=== PATIENT | female | born 1935 | race Asian ===

== ENCOUNTER 2018-07-05 18:22 | Inpatient (IN) | payer MEDICARE, OTHER ==
[2018-07-05 19:21] LABS: ADD MAN DIFF? NO
[2018-07-05] MEDS: ONDANSETRON 4 MG INJ IV ×2 (19:27→21:22)
[2018-07-05] MEDS: morphine 2 MG INJ IV ×2 (19:27→21:51)
[2018-07-05 19:28] LABS: ABNORMAL IP MESSAGE 1; BASOPHILS % 0.6 % (0.0-2.0); EOSINOPHILS % 0.4 % (0.0-7.0); HEMATOCRIT 31.9 % (37.0-47.0); HEMOGLOBIN 10.5 g/dl (12.0-16.0); LYMPHOCYTES # 0.4 10^3/ul (0.8-2.9); LYMPHOCYTES % 8.6 % (15.0-51.0); MEAN CORPUSCULAR HEMOGLOBIN 31.9 pg (29.0-33.0); MEAN CORPUSCULAR HGB CONC 32.9 g/dl (32.0-37.0); MEAN PLATELET VOLUME 10.6 fl (7.4-10.4); MONOCYTE # 0.4 10^3/ul (0.3-0.9); PLATELET COUNT 103 10^3/UL (140-415); RED BLOOD COUNT 3.29 10^6/ul (4.20-5.40); RED CELL DISTRIBUTION WIDTH 13.2 % (11.5-14.5)
[2018-07-05 19:28] LABS: WHITE BLOOD COUNT 4.9 10^3/ul (4.8-10.8)
[2018-07-05] MEDS: SOD CHLORIDE 0.9% 1,000 ML IV (19:28)
[2018-07-05 19:30] LABS: POSITIVE DIFF @See below
[2018-07-05 19:43] LABS: INR 0.99; PROTIME 13.2 Sec (11.9-14.9)
[2018-07-05 19:44] LABS: PARTIAL THROMBOPLASTIN TIME 31.5 Sec (23.0-35.0)
[2018-07-05 19:46] LABS: ALANINE AMINOTRANSFERASE 36 IU/L (13-69); ALBUMIN 4.2 g/dl (3.3-4.9); ALBUMIN/GLOBULIN RATIO 1.27; ALKALINE PHOSPHATASE 68 IU/L (42-121); ANION GAP 6 (5-13); ASPARTATE AMINO TRANSFERASE 43 IU/L (15-46); BILIRUBIN,INDIRECT 0.5 mg/dl (0-1.1); BILIRUBIN,TOTAL 0.5 mg/dl (0.2-1.3); BLOOD UREA NITROGEN 21 mg/dl (7-20); CALCIUM 9.4 mg/dl (8.4-10.2); CARBON DIOXIDE 27 mmol/L (21-31); CHLORIDE 104 mmol/L (97-110); CREATININE 0.83 mg/dl (0.44-1.00); GLUCOSE 218 mg/dl (70-220); POTASSIUM 4.2 mmol/L (3.5-5.1); SODIUM 137 mmol/L (135-144); TOTAL PROTEIN 7.5 g/dl (6.1-8.1)
[2018-07-05 19:57] LABS: TROPONIN-I 0.025 ng/ml (0.000-0.120)
[2018-07-05] MEDS ORDERED: HYDROCODONE/APAP (5/325) TAB PO (20:00)
[2018-07-05] MEDS ORDERED: NACL 0.9% 3 ML SYG IV (20:00)
[2018-07-05] MEDS ORDERED: ONDANSETRON 4 MG TAB PO (20:00)
[2018-07-05 20:33] LABS: ADD UMIC YES; UR ASCORBIC ACID 40 mg/dL (NEGATIVE); UR BILIRUBIN (Dip) NEGATIVE (NEGATIVE); UR BLOOD (Dip) NEGATIVE (NEGATIVE); UR CLARITY CLEAR (CLEAR); UR COLOR YELLOW (YELLOW); UR GLUCOSE (Dip) 3+ mg/dL (NEGATIVE); UR KETONES (Dip) NEGATIVE (NEGATIVE); UR LEUKOCYTE ESTERASE (Dip) NEGATIVE Leu/ul (NEGATIVE); UR NITRITE (Dip) NEGATIVE (NEGATIVE); UR RBC 1 /HPF (0-5); UR SPECIFIC GRAVITY (Dip) 1.012 (1.003-1.030); UR TOTAL PROTEIN (Dip) 1+ mg/dl (NEGATIVE); UR UROBILINOGEN (Dip) NEGATIVE (NEGATIVE); UR WBC 1 /HPF (0-5)
[2018-07-05] MEDS: HYDROmorphONE 0.5 MG/0.5 ML SYG IV (21:22)
[2018-07-05] MEDS: DOCUSATE SODIUM 100 MG CAP PO (22:39)
[2018-07-05] MEDS: ACETAMINOPHEN 325 MG TAB PO (22:39)
[2018-07-05] MEDS: hydrALAzine 20 MG INJ IV (22:39)
[2018-07-06 01:24] LABS: CREATINE KINASE 72 IU/L (23-200)
[2018-07-06 01:34] LABS: CK INDEX 1.2; CK-MB 0.89 ng/ml (0.0-2.4)
[2018-07-06] MEDS: morphine 2 MG INJ IV (05:16)
[2018-07-06 05:21] LABS: ADD MAN DIFF? NO
[2018-07-06 05:29] LABS: ABNORMAL IP MESSAGE 1; BASOPHILS % 0.7 % (0.0-2.0); HEMATOCRIT 29.8 % (37.0-47.0); HEMOGLOBIN 10.1 g/dl (12.0-16.0); LYMPHOCYTES # 0.6 10^3/ul (0.8-2.9); LYMPHOCYTES % 9.6 % (15.0-51.0); MEAN CORPUSCULAR HEMOGLOBIN 32.3 pg (29.0-33.0); MEAN CORPUSCULAR HGB CONC 33.9 g/dl (32.0-37.0); MEAN CORPUSCULAR VOLUME 95.2 fl (82.0-101.0); MEAN PLATELET VOLUME 10.8 fl (7.4-10.4); MONOCYTE # 0.5 10^3/ul (0.3-0.9); MONOCYTES % 7.9 % (0.0-11.0); NEUTROPHIL # 4.9 10^3/ul (1.6-7.5); NEUTROPHILS % 81.6 % (39.0-77.0); PLATELET COUNT 87 10^3/UL (140-415); RED BLOOD COUNT 3.13 10^6/ul (4.20-5.40); RED CELL DISTRIBUTION WIDTH 13.3 % (11.5-14.5)
[2018-07-06 05:38] LABS: POSITIVE DIFF @See below
[2018-07-06 05:58] LABS: ALANINE AMINOTRANSFERASE 29 IU/L (13-69); ALBUMIN 3.6 g/dl (3.3-4.9); ALBUMIN/GLOBULIN RATIO 1.24; ALKALINE PHOSPHATASE 52 IU/L (42-121); ANION GAP 3 (5-13); ASPARTATE AMINO TRANSFERASE 38 IU/L (15-46); BILIRUBIN,INDIRECT 0.6 mg/dl (0-1.1); BILIRUBIN,TOTAL 0.6 mg/dl (0.2-1.3); BLOOD UREA NITROGEN 20 mg/dl (7-20); CALCIUM 8.6 mg/dl (8.4-10.2); CARBON DIOXIDE 28 mmol/L (21-31); CHLORIDE 105 mmol/L (97-110); CHOL/HDL RATIO 2.5 RATIO; CHOLESTEROL 159 mg/dl (100-200); CREATININE 0.76 mg/dl (0.44-1.00); GLUCOSE 163 mg/dl (70-220); HDL CHOLESTEROL 63 mg/dl (33-92); LDL CHOLESTEROL,CALCULATED 90 mg/dl; MAGNESIUM 2.1 mg/dl (1.7-2.5); POTASSIUM 4.3 mmol/L (3.5-5.1); SODIUM 136 mmol/L (135-144); TOTAL PROTEIN 6.5 g/dl (6.1-8.1); TRIGLYCERIDES 31 mg/dl (0-149)
[2018-07-06 06:09] LABS: TROPONIN-I 0.082 ng/ml (0.000-0.120)
[2018-07-06 06:40] LABS: CK INDEX 1.7; CREATINE KINASE 95 IU/L (23-200)
[2018-07-06 08:22] LABS: HEMOGLOBIN A1C 6.8 % (0-5.9)
[2018-07-06] MEDS: BISACODYL (EC) 5 MG TAB PO (09:00)
[2018-07-06] MEDS: DOCUSATE SODIUM 100 MG CAP PO ×2 (09:00→20:36)
[2018-07-06] MEDS ORDERED: GLUCAGON 1 MG INJ IM (10:30)
[2018-07-06] MEDS ORDERED: GLUCOSE GEL 15 GRAM TUBE PO ×2 (10:30)
[2018-07-06] MEDS ORDERED: GLUCOSE GEL 15 GRAM TUBE BUCCAL (10:30)
[2018-07-06] MEDS ORDERED: DEXTROSE 50% 50 ML SYRINGE IV ×2 (10:30)
[2018-07-06 11:55] LABS: IMMEDIATE SPIN CROSSMATCH 1 3
[2018-07-06] MEDS: INSULIN ASPART [NOVOLOG] 3 ML PEN SC ×3 (12:52→20:34)
[2018-07-07] MEDS: ACCU-CHEK XX (02:00)
[2018-07-07] MEDS: BISACODYL (EC) 5 MG TAB PO (08:28)
[2018-07-07] MEDS: DOCUSATE SODIUM 100 MG CAP PO ×2 (08:28→21:55)
[2018-07-07] MEDS: INSULIN ASPART [NOVOLOG] 3 ML PEN SC ×4 (08:28→21:00)
[2018-07-07 12:37] LABS: HEMATOCRIT 36.9 % (37.0-47.0); HEMOGLOBIN 12.3 g/dl (12.0-16.0)
[2018-07-07] MEDS: ATORVASTATIN 10 MG TAB PO (21:55)
[2018-07-07] MEDS: DOXEPIN 25 MG CAP PO (21:55)
[2018-07-08] MEDS: SOD CHLORIDE 0.45% 1,000 ML IV (00:06)
[2018-07-08] MEDS: ACCU-CHEK XX (02:00)
[2018-07-08 05:21] LABS: ADD MAN DIFF? NO
[2018-07-08 05:24] LABS: ABNORMAL IP MESSAGE 1; BASOPHILS % 0.5 % (0.0-2.0); EOSINOPHILS # 0.1 10^3/ul (0.0-0.5); EOSINOPHILS % 1.8 % (0.0-7.0); HEMATOCRIT 38.5 % (37.0-47.0); HEMOGLOBIN 12.9 g/dl (12.0-16.0); LYMPHOCYTES # 0.7 10^3/ul (0.8-2.9); LYMPHOCYTES % 11.5 % (15.0-51.0); MEAN CORPUSCULAR HEMOGLOBIN 31.8 pg (29.0-33.0); MEAN CORPUSCULAR HGB CONC 33.5 g/dl (32.0-37.0); MEAN CORPUSCULAR VOLUME 94.8 fl (82.0-101.0); MEAN PLATELET VOLUME 11.3 fl (7.4-10.4); MONOCYTE # 0.4 10^3/ul (0.3-0.9); NEUTROPHIL # 4.9 10^3/ul (1.6-7.5); NEUTROPHILS % 78.9 % (39.0-77.0); RED BLOOD COUNT 4.06 10^6/ul (4.20-5.40); RED CELL DISTRIBUTION WIDTH 13.4 % (11.5-14.5)
[2018-07-08 05:24] LABS: WHITE BLOOD COUNT 6.2 10^3/ul (4.8-10.8)
[2018-07-08 05:43] LABS: PHOSPHORUS 2.4 mg/dl (2.5-4.9)
[2018-07-08 05:43] LABS: MAGNESIUM 2.2 mg/dl (1.7-2.5)
[2018-07-08 05:44] LABS: PLATELET COUNT 66 10^3/UL (140-415); POSITIVE DIFF @See below
[2018-07-08 05:47] LABS: ANION GAP 7 (5-13); BLOOD UREA NITROGEN 16 mg/dl (7-20); CALCIUM 8.6 mg/dl (8.4-10.2); CARBON DIOXIDE 28 mmol/L (21-31); CHLORIDE 102 mmol/L (97-110); CREATININE 0.72 mg/dl (0.44-1.00); GLUCOSE 158 mg/dl (70-220); SODIUM 137 mmol/L (135-144)
[2018-07-08] MEDS ORDERED: EPHEDrine SULFATE 50 MG/5 ML SYG (07:00)
[2018-07-08] MEDS: INSULIN ASPART [NOVOLOG] 3 ML PEN SC ×4 (08:30→21:00)
[2018-07-08] MEDS: LOSARTAN 50 MG TAB PO (08:43)
[2018-07-08] MEDS: BISACODYL (EC) 5 MG TAB PO (09:00)
[2018-07-08] MEDS: CHOLECALCIFEROL 2,000 UNIT CAP PO (09:00)
[2018-07-08] MEDS: LINAGLIPTIN 5 MG TABLET PO (09:00)
[2018-07-08] MEDS ORDERED: ATORVASTATIN 10 MG TAB PO (09:00)
[2018-07-08] MEDS: DOCUSATE SODIUM 100 MG CAP PO ×2 (09:00→21:43)
[2018-07-08] MEDS: POTASSIUM PHOSPHATE 20 MEQ in SOD CHLORIDE 0.9% 250 ML IVPB (11:02)
[2018-07-08] MEDS ORDERED: FENTAnyl 50 MCG/ML VIAL (17:12)
[2018-07-08] MEDS ORDERED: PROPOFOL 20 ML (17:12)
[2018-07-08] MEDS ORDERED: CEFAZOLIN 1 GM INJ (17:12)
[2018-07-08] MEDS ORDERED: ROPIVACAINE 0.2% 20 ML VIAL (17:13)
[2018-07-08] MEDS ORDERED: PHENYLephrine (100 MCG/ML) 5ML SYG ×3 (18:07→19:28)
[2018-07-08] MEDS: POLYMYXIN/BACITRACIN 1L IRRIG IRR (18:37)
[2018-07-08] MEDS ORDERED: METOCLOPRAMIDE 10 MG INJ (18:47)
[2018-07-08] MEDS ORDERED: ONDANSETRON 4 MG INJ (18:47)
[2018-07-08] MEDS ORDERED: DEXAMETHASONE 4 MG/ML 5 ML INJ (18:47)
[2018-07-08] MEDS ORDERED: EPHEDrine SULFATE 50 MG/5 ML SYG IV (19:30)
[2018-07-08] MEDS ORDERED: FENTAnyl 50 MCG/ML VIAL IV ×2 (19:30)
[2018-07-08] MEDS ORDERED: ACETAMINOPHEN 500 MG TAB PO (19:30)
[2018-07-08] MEDS ORDERED: DIPHENHYDRAMINE 50 MG INJ IV (19:30)
[2018-07-08] MEDS ORDERED: HYDROmorphONE 1 MG/5 ML IV SYRINGE IV ×2 (19:30)
[2018-07-08] MEDS ORDERED: hydrALAzine 20 MG INJ IV (19:30)
[2018-07-08] MEDS ORDERED: ONDANSETRON 4 MG INJ IV ×2 (19:30)
[2018-07-08] MEDS ORDERED: morphine 2 MG INJ IV (19:30)
[2018-07-08] MEDS ORDERED: METOCLOPRAMIDE 10 MG INJ IV (19:30)
[2018-07-08] MEDS ORDERED: ALBUMIN HUMAN 5% 250 ML IV (19:30)
[2018-07-08] MEDS ORDERED: NALBUPHINE HCL (10 MG/1 ML) INJ IV (19:30)
[2018-07-08] MEDS ORDERED: HYDROCODONE/APAP (5/325) TAB PO ×2 (19:30→20:00)
[2018-07-08] MEDS ORDERED: NALOXONE (0.4 MG/ML) INJ IV (19:30)
[2018-07-08] MEDS ORDERED: HYDROmorphONE 0.5 MG/0.5 ML SYG IV (19:30)
[2018-07-08] MEDS ORDERED: OXYCODONE/ACETAMINOPHEN (5/325) TAB PO (19:30)
[2018-07-08] MEDS ORDERED: LABETALOL HCL 20MG INJ IV (19:30)
[2018-07-08] MEDS ORDERED: NACL 0.9% 3 ML SYG IV (20:00)
[2018-07-08 20:27] LABS: ABNORMAL IP MESSAGE 1; HEMATOCRIT 24.4 % (37.0-47.0); HEMOGLOBIN 8.1 g/dl (12.0-16.0); MEAN CORPUSCULAR HEMOGLOBIN 31.8 pg (29.0-33.0); MEAN CORPUSCULAR HGB CONC 33.2 g/dl (32.0-37.0); MEAN CORPUSCULAR VOLUME 95.7 fl (82.0-101.0); MEAN PLATELET VOLUME 11.3 fl (7.4-10.4); PLATELET COUNT 48 10^3/UL (140-415); RED BLOOD COUNT 2.55 10^6/ul (4.20-5.40); RED CELL DISTRIBUTION WIDTH 13.6 % (11.5-14.5)
[2018-07-08 20:27] LABS: WHITE BLOOD COUNT 5.4 10^3/ul (4.8-10.8)
[2018-07-08 20:38] LABS: ADD MAN DIFF? YES; POSITIVE DIFF @See below
[2018-07-08 20:43] LABS: ANION GAP 10 (5-13); BLOOD UREA NITROGEN 17 mg/dl (7-20); CARBON DIOXIDE 20 mmol/L (21-31); CHLORIDE 105 mmol/L (97-110); CREATININE 0.65 mg/dl (0.44-1.00); GLUCOSE 138 mg/dl (70-220); POTASSIUM 3.6 mmol/L (3.5-5.1); SODIUM 135 mmol/L (135-144)
[2018-07-08 20:54] LABS: ANISOCYTOSIS 1+ (0-0); BAND NEUTROPHILS % (M) 1 % (0-4); BASOPHIL #M 0.1 10^3/ul (0.0-0.0); BASOPHILS % (M) 3 % (0-2); BURR CELLS 2+ (0-0); EOSINOPHILS % (M) 1 % (0-7); ERYTHROBLAST% (NRBC) (M) 1 % (0-0); LYMPHOCYTES #M 0.3 10^3/ul (0.8-2.9); LYMPHOCYTES % (M) 6 % (15-51); MONOCYTES % (M) 1 % (0-11); OVALOCYTES 1+ (0-0); PLATELET ESTIMATE NORMAL; POIKILOCYTOSIS 1+ (0-0); POLYCHROMASIA 1+ (0-0); SEG NEUT #M 4.8 10^3/ul (1.6-7.5); SEGMENTED NEUTROPHILS (M) % 88 % (39-77); SMUDGE%M 5 % (0-0)
[2018-07-08] MEDS: DOXEPIN 25 MG CAP PO (21:43)
[2018-07-08] MEDS: ATORVASTATIN 10 MG TAB PO (21:43)
[2018-07-08] MEDS: CEFAZOLIN 2 GM/50 ML (PMX) 50 ML IVPB (21:43)
[2018-07-08] MEDS: SOD CHLORIDE 0.9% 1,000 ML IV (21:44)
[2018-07-08] MEDS: morphine 4 MG/ML VIAL IV (23:46)
[2018-07-09] MEDS: ACCU-CHEK XX (01:34)
[2018-07-09] MEDS: CEFAZOLIN 2 GM/50 ML (PMX) 50 ML IVPB ×2 (03:58→11:43)
[2018-07-09 05:15] LABS: ADD MAN DIFF? NO
[2018-07-09 05:22] LABS: ABNORMAL IP MESSAGE 1; HEMATOCRIT 22.9 % (37.0-47.0); HEMOGLOBIN 7.4 g/dl (12.0-16.0); LYMPHOCYTES # 0.2 10^3/ul (0.8-2.9); LYMPHOCYTES % 3.3 % (15.0-51.0); MEAN CORPUSCULAR HEMOGLOBIN 31.2 pg (29.0-33.0); MEAN CORPUSCULAR HGB CONC 32.3 g/dl (32.0-37.0); MEAN CORPUSCULAR VOLUME 96.6 fl (82.0-101.0); MEAN PLATELET VOLUME 11.1 fl (7.4-10.4); MONOCYTE # 0.2 10^3/ul (0.3-0.9); MONOCYTES % 4.5 % (0.0-11.0); NEUTROPHIL # 4.7 10^3/ul (1.6-7.5); RED BLOOD COUNT 2.37 10^6/ul (4.20-5.40); RED CELL DISTRIBUTION WIDTH 13.7 % (11.5-14.5)
[2018-07-09 05:22] LABS: WHITE BLOOD COUNT 5.1 10^3/ul (4.8-10.8)
[2018-07-09 05:23] LABS: ANION GAP 10 (5-13); BLOOD UREA NITROGEN 23 mg/dl (7-20); CALCIUM 7.1 mg/dl (8.4-10.2); CARBON DIOXIDE 21 mmol/L (21-31); CHLORIDE 104 mmol/L (97-110); CREATININE 0.73 mg/dl (0.44-1.00); GLUCOSE 284 mg/dl (70-220); POTASSIUM 4.4 mmol/L (3.5-5.1); SODIUM 135 mmol/L (135-144)
[2018-07-09 05:44] LABS: PHOSPHORUS 4.6 mg/dl (2.5-4.9)
[2018-07-09 05:44] LABS: MAGNESIUM 1.8 mg/dl (1.7-2.5)
[2018-07-09 06:08] LABS: POSITIVE DIFF @See below
[2018-07-09 06:09] LABS: PLATELET COUNT 60 10^3/UL (140-415)
[2018-07-09 07:17] LABS: HEMOGLOBIN 7.2 g/dl (12.0-16.0)
[2018-07-09] MEDS: BISACODYL (EC) 5 MG TAB PO (08:47)
[2018-07-09] MEDS: DOCUSATE SODIUM 100 MG CAP PO ×2 (08:48→20:20)
[2018-07-09] MEDS: LOSARTAN 50 MG TAB PO (08:48)
[2018-07-09] MEDS: CHOLECALCIFEROL 2,000 UNIT CAP PO (08:48)
[2018-07-09] MEDS: INSULIN ASPART [NOVOLOG] 3 ML PEN SC ×3 (08:49→17:40)
[2018-07-09] MEDS: ENOXAPARIN 40 MG/0.4 ML SYG SC (08:50)
[2018-07-09] MEDS: SOD CHLORIDE 0.9% 250 ML IV* (11:08)
[2018-07-09 14:25] LABS: IMMEDIATE SPIN CROSSMATCH 1 1
[2018-07-09] MEDS: ACETAMINOPHEN 325 MG TAB PO ×2 (14:30→20:20)
[2018-07-09] MEDS: DOXEPIN 25 MG CAP PO (20:20)
[2018-07-09] MEDS: ATORVASTATIN 10 MG TAB PO (20:20)
== END 2018-07-09 20:30 | DRG 470 ==
LOC: E/R 18:22 → MS1 19:59
PROC: 0SRS0JA Replacement of Left Hip Joint, Femoral Surface with Synthetic Substitute, Uncemented, Open Approach (ICD-10-PCS; principal; 2018-07-08 17:30)
DX: S72.012A Unspecified intracapsular fracture of left femur, initial encounter for closed fracture (principal); E44.0 Moderate protein-calorie malnutrition; Z68.1 Body mass index [BMI] 19.9 or less, adult; E11.9 Type 2 diabetes mellitus without complications; Z79.4 Long term (current) use of insulin; I10 Essential (primary) hypertension; W19.XXXA Unspecified fall, initial encounter; R50.9 Fever, unspecified; D47.3 Essential (hemorrhagic) thrombocythemia; J44.9 Chronic obstructive pulmonary disease, unspecified
CPT/HCPCS: 36430; 70450; 71045; 72170; 73500; 73510; 80048; 80053; 80061; 81001; 82550; 82553; 82962; 83036; 83735; 84100; 84443; 84484; 85014; 85018; 85025; 85610; 85730; 86850; 86900; 86901; 86920; 87040; 87086; 88304; 88311; 93005; 93306; 96374; 96375; 97161; 97530; 99285-25

== ENCOUNTER 2018-07-14 13:05 | Emergency (ER) | payer MEDICARE, OTHER ==
[2018-07-14 13:50] LABS: ADD MAN DIFF? NO
[2018-07-14 13:55] LABS: WHITE BLOOD COUNT 7.2 10^3/ul (4.8-10.8)
[2018-07-14 13:55] LABS: ABNORMAL IP MESSAGE 1; BASOPHILS % 0.3 % (0.0-2.0); EOSINOPHILS # 0.1 10^3/ul (0.0-0.5); EOSINOPHILS % 0.8 % (0.0-7.0); HEMATOCRIT 26.3 % (37.0-47.0); HEMOGLOBIN 8.7 g/dl (12.0-16.0); LYMPHOCYTES # 0.6 10^3/ul (0.8-2.9); LYMPHOCYTES % 8.2 % (15.0-51.0); MEAN CORPUSCULAR HEMOGLOBIN 31.2 pg (29.0-33.0); MEAN CORPUSCULAR HGB CONC 33.1 g/dl (32.0-37.0); MEAN CORPUSCULAR VOLUME 94.3 fl (82.0-101.0); MEAN PLATELET VOLUME 10.3 fl (7.4-10.4); MONOCYTE # 0.6 10^3/ul (0.3-0.9); MONOCYTES % 8.3 % (0.0-11.0); NEUTROPHIL # 5.9 10^3/ul (1.6-7.5); NEUTROPHILS % 81.7 % (39.0-77.0); PLATELET COUNT 131 10^3/UL (140-415); RED BLOOD COUNT 2.79 10^6/ul (4.20-5.40); RED CELL DISTRIBUTION WIDTH 14.1 % (11.5-14.5)
[2018-07-14 14:15] LABS: PARTIAL THROMBOPLASTIN TIME 29.8 Sec (23.0-35.0)
[2018-07-14 14:20] LABS: INR 0.92; PROTIME 12.5 Sec (11.9-14.9)
[2018-07-14 14:25] LABS: ALANINE AMINOTRANSFERASE 41 IU/L (13-69); ALBUMIN 3.2 g/dl (3.3-4.9); ALBUMIN/GLOBULIN RATIO 1.14; ALKALINE PHOSPHATASE 108 IU/L (42-121); ANION GAP 4 (5-13); ASPARTATE AMINO TRANSFERASE 48 IU/L (15-46); BLOOD UREA NITROGEN 22 mg/dl (7-20); CALCIUM 8.6 mg/dl (8.4-10.2); CARBON DIOXIDE 29 mmol/L (21-31); CHLORIDE 100 mmol/L (97-110); GLUCOSE 215 mg/dl (70-220); POSITIVE DIFF @See below; POTASSIUM 4.3 mmol/L (3.5-5.1); SODIUM 133 mmol/L (135-144)
[2018-07-14 14:36] LABS: TROPONIN-I < 0.012 ng/ml (0.000-0.120)
== END 2018-07-14 18:20 | disposition home or self-care (01) ==
LOC: E/R 13:05
DX: D64.9 Anemia, unspecified (principal); E11.9 Type 2 diabetes mellitus without complications; I10 Essential (primary) hypertension; D69.6 Thrombocytopenia, unspecified; Z79.4 Long term (current) use of insulin
CPT/HCPCS: 36415; 80053; 84484; 85025; 85610; 85730; 86850; 86900; 86901; 93005; 99284